=== PATIENT | male | born 1960 | race Caucasian/White ===

== ENCOUNTER → 2020-01-04 | Outpatient (CLI) | payer OTHER ==
[~2020-01-04] MED LIST: CLON.1; HYDCHL25; LISI20; OMEPRAZOLE MAGN20 MG
[2020-01-06 16:09] LABS: FREE TESTOSTERONE(DIRECT) 6.4 pg/mL (7.2-24.0); TESTOSTERONE, SERUM 196 ng/dL (264-916)
== END | disposition home or self-care (01) ==
LOC: LAB SHORT 17:26 → LAB 17:26
PROVIDERS: Hospitalist
DX: R68.82 Decreased libido (principal)
CPT/HCPCS: 84402; 84403